=== PATIENT | male | born 1975 | race Caucasian/White ===

== ENCOUNTER 2017-07-09 18:34 | Emergency (ER) | payer BC ==
[2017-07-09 18:58] VITALS: BP 164/89; PULSE 86; RESP 16; TEMP 98
--- NOTE | 2017-07-09 19:10 | ED ---
Upper Extremity HPI - General Chief Complaint: Extremity Injury, Upper Stated Complaint: Poss pulled muscle in bicep Time Seen by Provider: 07/09/17 19:02 Source: patient Mode of arrival: ambulatory Limitations: no limitations - History of Present Illness Initial Comments: 42-year-old male patient presents to emergency department today with complaints of left bicep muscle pain. Patient states that about an hour ago he was lifting a heavy television when he felt a muscle cramp up. Patient states that he feels the muscle is cramped and will not release. Patient states he is having some pain to the area. Patient is able to flex and extend his arm without difficulty. Patient denies any previous injury to the muscle or tendon. Patient denies any arm numbness or tingling. Is able to perform full range of motion to the shoulder and wrist without any difficulties. Patient denies any headache, neck pain, back pain, chest pain, shortness of breath, dizziness, weakness, abdominal pain, nausea, vomiting, or difficulties with bowel movements or urination. - Related Data Home Medications Medication Instructions Recorded Confirmed Acetaminophen Tab [Tylenol Tab] 325 mg PO ONCE PRN 07/09/17 07/09/17 Previous Rx's Medication Instructions Recorded Naproxen 500 mg PO BID PRN #20 tablet 07/09/17 Allergies Allergy/AdvReac Type Severity Reaction Status Date / Time No Known Allergies Allergy Verified 07/09/17 19:12 Review of Systems ROS Statement: Those systems with pertinent positive or pertinent negative responses have been documented in the HPI. ROS Other: All systems not noted in ROS Statement are negative. Past Medical History Past Medical History: No Reported History History of Any Multi-Drug Resistant Organisms: None Reported Past Surgical History: Orthopedic Surgery Past Psychological History: No Psychological Hx Reported Smoking Status: Current some day smoker Past Alcohol Use History: Rare Past Drug Use History: None Reported General Exam Limitations: no limitations General appearance: alert, in no apparent distress Neck exam: Present: normal inspection, full ROM. Absent: tenderness, meningismus, lymphadenopathy Respiratory exam: Present: normal lung sounds bilaterally. Absent: respiratory distress, wheezes, rales, rhonchi, stridor Cardiovascular Exam: Present: regular rate, normal rhythm, normal heart sounds. Absent: systolic murmur, diastolic murmur, rubs, gallop, clicks Extremities exam: Present: full ROM, normal capillary refill, other (Unable to palpate left bicep tendon distally. Muscle spasm noted on the left bicep. Skin pink, warm, and dry. Cap refill less than 3 seconds. Radial pulses intact and equal bilaterally.). Absent: normal inspection, tenderness, pedal edema, joint swelling, calf tenderness Back exam: Present: normal inspection Neurological exam: Present: alert, oriented X3, CN II-XII intact Psychiatric exam: Present: normal affect, normal mood Skin exam: Present: warm, dry, intact, normal color. Absent: rash Course Vital Signs 07/09/17 18:56 Temperature 98 F Pulse Rate 86 Respiratory 16 Rate Blood Pressure 164/89 O2 Sat by Pulse 98 Oximetry Medical Decision Making - Medical Decision Making 42-year-old male patient presented for left bicep injury. Physical exam did reveal a possible tendon rupture. Patient be discharged with instructions to follow-up with orthopedics in the next 1-2 days. Given anti-inflammatory pain medication. Instructed to apply ice to the area. Patient instructed to return here for any new, worsening, or concerning symptoms. Patient verbalized understanding and agreed with this plan. Disposition Clinical Impression: Rupture of distal biceps tendon Disposition: HOME SELF-CARE Condition: Good Instructions: Muscle Strain (ED), Tendon Rupture (ED) Additional Instructions: Apply ice to the area for the first 24 hours. Then apply heat. Take anti- inflammatory pain medication. Follow-up with orthopedics in one to 2 days. Return here immediately for any new, worsening, or concerning symptoms. Prescriptions: Naproxen 500 mg PO BID PRN #20 tablet PRN Reason: Pain Referrals: Edison Benson DO [Primary Care Provider] - 1-2 days Tomás Cruz DO [Doctor of Osteopathic Medicine] - 1-2 days Time of Disposition: 19:10
== END 2017-07-09 19:31 | disposition home or self-care (01) ==
LOC: EC 18:34
DX: S46.212A Strain of muscle, fascia and tendon of other parts of biceps, left arm, initial encounter (principal); X50.0XXA Overexertion from strenuous movement or load, initial encounter; F17.200 Nicotine dependence, unspecified, uncomplicated
CPT/HCPCS: 99283